=== PATIENT | male | born 1990 | race Caucasian/White ===

== ENCOUNTER 2025-03-23 20:22 | Emergency (ER) | payer SELFPAY ==
[2025-03-23 20:24] VITALS: BP 151/87; PULSE 96; RESP 17; TEMP 36.7; O2SAT 98; BMI 35.9
--- OUTSIDE RECORDS SUMMARY | 2025-03-23 20:27 | XMS_ITS | Encounter Summary ---
Author Organization [facility] Address [address] [place] [address] Care Team Providers Care Structural Steel Detailer Name Role Phone Unavailable Primary Care Provider Unavailabl e Encounter Details Date Type Department Care Team (Latest Contact Info) Description 07/03/2002 Outpatient Historical [facility] Medicine [place] [address] [phone] Ana Solitario MD NO ADDRESS ON FILE ACUTE PHARYNGITIS (Primary Dx); ACUTE SINUSITIS NOS Social History Tobacco Use Types Packs/Day Years Used Date Smoking Tobacco: Never Assessed Sex and Gender Information Value Date Recorded Sex Assigned at Not on file 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
--- OUTSIDE RECORDS SUMMARY | 2025-03-23 20:27 | XMS_ITS | Encounter Summary ---
Author Organization [facility] Address [address] [place] [address] Care Team Providers Care Alarm Signal Operator Name Role Phone Unavailable Primary Care Provider Unavailabl e Encounter Details Date Type Department Care Team (Latest Contact Info) Description 01/04/2000 Outpatient Historical [facility] Medicine [place] [address] [phone] Lachelle Reilly NO ADDRESS ON FILE Unspecified otitis media (Primary Dx); Infective otitis externa, unspecified Social History Tobacco Use Types Packs/Day Years Used Date Smoking Tobacco: Never Assessed Sex and Gender Information Value Date Recorded Sex Assigned at Not on file 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
--- OUTSIDE RECORDS SUMMARY | 2025-03-23 20:27 | XMS_ITS | Encounter Summary ---
Author Organization [facility] Address [address] [place] [address] Care Team Providers Care Wafer Fab Technician Name Role Phone Unavailable Primary Care Provider Unavailabl e Encounter Details Date Type Department Care Team (Latest Contact Info) Description 08/21/2001 Outpatient Historical [facility] Medicine [place] [address] [phone] Ana Solitario MD NO ADDRESS ON FILE STREP SORE THROAT (Primary Dx) Social History Tobacco Use Types Packs/Day Years Used Date Smoking Tobacco: Never Assessed Sex and Gender Information Value Date Recorded Sex Assigned at Not on file 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
--- OUTSIDE RECORDS SUMMARY | 2025-03-23 20:27 | XMS_ITS | Clinical Summary ---
Author Organization [facility] Address [address] [place] [address] Care Team Providers Care Social Service Liaison Name Role Phone Unavailable Primary Care Provider Unavailabl e Allergies Active Allergy Reactions Criticality Noted Date Comments White Petrolatum Swelling Low 06/16/2012 Medications fluticasone propionate (FLONASE) 50 mcg/spray [place], Suspension nasal inhalerIndicatio ns:Upper respiratory tract infection, unspecified type Administer 2 Sprays in each nostril daily. 16 Gram 2 0 Active promethazine-dex tromethorphan (PHENERGAN-DM) 6.25-15 mg/5 mL syrupIndications :Upper respiratory tract infection, unspecified type Take 5 mL by mouth nightly as needed for Cough. 120 mL 1 0 Active ondansetron (Zofran ODT) 4 mg Tablet, Rapid Dissolve Take 1 Tablet (4 mg) by mouth every 6 hours as needed for Nausea/Emesis. Dissolve tablet on top of tongue, then swallow with saliva. 16 Tablet 0 Active Active Problems No known active problems Immunizations Immunization Administration Dates Next Due (M-M-R II/PRIORIX)(12 MO UP) MEASLES, MUMPS AND RUBELLA VIRUS VACCINE, 0.5 ML IM/SUBCUT 11/01/1992 Dt Dtp Dtap Vaccine 05/23/2006, 3,03/03/1992,1991,1991 HIB, Unspecified Formulation 11/01/1992, 03/03/1992,01/06/1992,1991 Hepatitis B Vaccine 07/25/1995 IPV/OPV 11/01/1992,01/06/1992,1991 Social History Tobacco Use Types Packs/Day Years Used Date Smoking Tobacco: Never Smokeless Tobacco: Current Chew Tobacco Cessation:Ready to Q uit: No; Counseling Given: Yes Comments:one dip per day Alcohol Use Standard Drinks/Week Comments Yes 0 (1 standard drink = 0.6 oz pur e alcohol) ocassionally Sex and Gender Information Value Date Recorded Sex Assigned at Not on file 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 Gender Identity Not on file Sexual Orientation Not on file Occupation Industry Job Start Date Job End Date Not on file Not on file Not on file Not on file Last Filed Vital Signs Vital Sign Reading Time Taken Comments Blood Pressure 130/80 09/01/2019 11:23 AM CDT Pulse 72 09/01/2019 11:23 AM CDT Temperature 37.7 C (99.9 F) 09/01/2019 11:23 AM CDT Respiratory Rate 22 09/01/2019 11:2 3 AM CDT Oxygen Saturation 96% 09/01/2019 11: 23 AM CDT Inhaled Oxygen Concentration - - Weight 119.4 kg (263 lb 3.2 oz) 020 11:23 AM CDT Height 188 cm (6' 2 ) 09/01/2019 11:23 AM CDT Body Mass Index 33.79 09/01/2019 11:23 AM CDT Plan of Treatment Health Maintenance Due Date Last Done Comments HEPATITIS B VACCINES (2 of 3 - 3-dose series) 08/22/1995 07/25/1995 DTAP/TDAP/TD VACCINES (6 - Tdap) 05/23/2016 05/23/2006, 11/01/1992, 03/03/1992, Additional history exists HPV VACCINES (1 - 3-dose SCD M series) 2018 INFLUENZA VACCINE (#1) 2025 08/05/[address] [place] [address] [place] [address]
--- OUTSIDE RECORDS SUMMARY | 2025-03-23 20:27 | XMS_ITS | Encounter Summary ---
Author Organization [facility] Address [address] [place] [address] Care Team Providers Care Assembler Bicycle Name Role Phone Unavailable Primary Care Provider Unavailabl e Encounter Details Date Type Department Care Team (Latest Contact Info) Description 04/09/2001 Outpatient Historical [facility] Medicine [place] [address] [phone] Ana Solitario MD NO ADDRESS ON FILE DERMATITIS NOS (Primary Dx) Social History Tobacco Use Types Packs/Day Years Used Date Smoking Tobacco: Never Assessed Sex and Gender Information Value Date Recorded Sex Assigned at Not on file 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
--- OUTSIDE RECORDS SUMMARY | 2025-03-23 20:27 | XMS_ITS | Encounter Summary ---
Author Organization [facility] Address [address] [place] [address] Care Team Providers Care Wash Mill Operator Name Role Phone Unavailable Primary Care Provider Unavailabl e Encounter Details Date Type Department Care Team (Latest Contact Info) Description 02/05/[address] 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
--- OUTSIDE RECORDS SUMMARY | 2025-03-23 20:27 | XMS_ITS | Clinical Summary ---
Author Organization [facility] Address [address] [facility] Attn: Epic Prelude ADT ZHANNA LEON [address] Care Team Providers Care House Repairer Name Role Phone Krysten Rodriguez [facility] Primary Care Provider [phone] Allergies Active Allergy Reactions Criticality Noted Date Comments White Petrolatum Swelling Low 06/16/2012 Medications fluticasone propionate (FLONASE) 50 mcg/spray [place], Suspension nasal inhalerIndicatio ns:Upper respiratory tract infection, unspecified type Administer 2 Sprays in each nostril daily. 16 Gram 2 0 Active ondansetron (ZOFRAN ODT) 4 mg Tablet, Rapid Dissolve Take 1 Tablet (4 mg) by mouth every 6 hours as needed for Nausea/Emesis. Dissolve tablet on top of tongue, then swallow with saliva. 16 Tablet 0 0 Active promethazine-dex tromethorphan (PHENERGAN-DM) 6.25-15 mg/5 mL syrupIndications :Upper respiratory tract infection, unspecified type Take 5 mL by mouth nightly as needed for Cough. 120 mL 1 0 Active Immunizations Immunization Administration Dates Next Due (M-M-R II/PRIORIX)(12 MO UP) MEASLES, MUMPS AND RUBELLA VIRUS VACCINE, 0.5 ML IM/SUBCUT 11/01/1992 Dt Dtp Dtap Vaccine 05/23/2006, 3,03/03/1992,1991,1991 HIB, Unspecified Formulation 11/01/1992, 03/03/1992,01/06/1992,1991 Hepatitis B Vaccine 07/25/1995 IPV/OPV 11/01/1992,01/06/1992,1991 Social History Tobacco Use Types Packs/Day Years Used Date Smoking Tobacco: Never Smokeless Tobacco: Current Comments:Quit smoking: one d ip per day Alcohol Use Standard Drinks/Week Comments Yes 0 (1 standard drink = 0.6 oz pur e alcohol) Sex and Gender Information Value Date Recorded Sex Assigned at Not on file 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 Gender Identity Not on file Sexual Orientation Not on file Last Filed Vital Signs Vital Sign Reading Time Taken Comments Blood Pressure 130/80 09/01/2019 11:23 AM CDT Pulse 72 09/01/2019 11:23 AM CDT Temperature 37.7 C (99.9 F) 09/01/2019 11:23 AM CDT Respiratory Rate 22 09/01/2019 11:2 3 AM CDT Oxygen Saturation - - Inhaled Oxygen Concentration - - Weight 119.4 [...] series) 2018 INFLUENZA VACCINE (#1) 2025 08/05/2019 Care Teams House Repairer Relationship Specialty Start Date End Date Krysten Rodriguez FNP [address] [place] [phone] PCP - General Nurse Practitioner Family 01/04/21
--- NOTE | 2025-03-23 20:33 | ED_ITS ---
HPI - GI Bleed 2 General: Chief complaint: GI Bleed Stated complaint: Rectum Bleeding Time Seen by Provider: 03/23/25 20:25 History of Present Illness: 34yo M w/cc of bright red blood per rect um for several days. Patient initially had noted a mass on his anus and had some pain with bowel movements but the pain has now improved. Patient has had to change his underwear and has used 2 pads today for bleeding. Patient has not had a fever. Patient denies any chest pain, shortness of breath, palpitations or lightheadedness. He denies any abdominal pain, nausea or vomiting. He denies any urinary problems. Patient states that he has no previous history of rectal bleeding. He is otherwise healthy. 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 He denies previous h/o abd sgy. Related Data Allergies Allergy/AdvReac Type Severity Reaction Status Date / Time petrolatum,white (From Allergy ALGY-Anaphy Verified 03/23/25 20:28 Petroleum Jelly) laxis Physical Exam 2 Narrative: EXAM NARRATIVE: Vital signs were reviewed. Patient is alert and oriented. Patient is breathing comfortably, no increased WOB or accessory muscle use. SpO2 is above 95% on RA. No hypotension or tachycardia. Patient is moving all extremities, no deformity or gross injury. Rectal exam reveals a dime sized external mass with appearance consistent w/external hemorrhoid. It has stopped bleeding. There is dried blood noted. Course 2 Vital Signs: Vital signs: Vital Signs Temperature 98.1 F 03/23/25 20:24 Pulse Rate 92 03/23/25 21:07 Respiratory Rate 17 03/23/25 20:24 Blood Pressure 150/90 03/23/25 21:07 Pulse Oximetry 97 03/23/25 21:07 Oxygen Delivery Me thod Room Air 03/23/25 21:07 MDM - GI Bleed Medical Decision Making 31-year-old male presenting with a chief complaint of mass on his anus, pain with bowel movement and bright red blood per rectum for few days. Differential diagnosis includes but is limited to, external versus internal hemorrhoid, abscess/infection, STI, upper GI versus lower GI bleed, other. On exam he centrically stable and nontoxic-appearing. He has a benign abdominal exam and has no tenderness with palpation. Patient was screened with CBC and CMP. He has a normal white blood cell count and he is not anemic. He does not have any actionable electrolyte abnormalities and has normal kidney function, liver function. Physical exam is consistent with an external hemorrhoid. Patient is appropriate for outpatient management at this time. We did discuss that he may need a colonoscopy if rectal bleeding persists. He expressed understanding of my instructions. He will follow up outpatient. He was discharged in a stable condition. Lab Data 03/23/25 20:42 03/23/25 20:42 Laboratory Results WBC 5.83 10^3/uL (3.29-11.43) 03/23/25 20:42 RBC 4.80 10^6/uL (3.85-5.65) 03/23/25 20:42 Hgb 13.50 g/dL (11.27-16.99) 03/23/25 20:42 Hct 40.6 % (37-53) 03/23/25 20:42 MCV 84.6 fl (82-101) 03/23/25 20:42 MCH 28.1 pg (27-33) 03/23/25 20:42 MCHC 33.3 g/dL (30-55) 03/23/25 20:42 RDW 12.1 % (12.1-15.1) 03/23/25 20:42 Plt Count 178 10^3/cmm (157-399) 03/23/25 20:42 MPV 10.7 fL (7.4-10.4) H 03/23/25 20:42 Neut % (Auto) 43.0 % 03/23/25 20:42 Lymph % (Auto) 45.6 % 03/23/25 20:42 [place] % (Auto) 8.2 % 03/23/25 20:42 Eos % (Auto) 2.2 % 03/23/25 20:42 Baso % (Auto) 0.7 % 03/23/25 20:42 Neut # (Auto) 2.50 10^3/uL (1.8-7.7) 03/23/25 20:42 Lymph # (Auto) 2.7 10^3/uL (0.8-4.8) 03/23/25 20:42 [place] # (Auto) 0.5 10^3/uL (0.2-0.9) 03/23/25 20:42 Eos # (Auto) 0.1 10^3/uL (0.0-0.8) 03/23/25 20:42 Baso # (Auto) 0.0 10^3/uL (0.0-0.1) 03/23/25 20:42 Nucleated RBC % (auto) 0 % 03/23/25 20:42 Nucleated RBCs # 0.0 /100WBC 03/23/25 20:42 Sodium 142 mmol/L (136-145) 03/23/25 20:42 Potassium 3.7 mmol/L (3.5-5.1) 03/23/25 20:42 Chloride 106 mmol/L (98-107) 03/23/25 20:42 Carbon Dioxide 23 mmol/L (22-29) 03/23/25 20:42 Anion Gap 16.7 (5-19) 03/23/25 20:42 BUN 17 mg/dL (6-20) 03/23/25 20:42 Creatinine 1.0 mg/dL (0.7-1.2) 03/23/25 20:42 GFR Calculation 86.1 mL/min (90-130) L 03/23/25 20:42 Glucose 85 mg/dL (65-115) 03/23/25 20:42 Calculated Osmolality 295 mOsm/kg (285-295) 03/23/25 20:42 Calcium 8.7 mg/dL (8.5-10.5) 03/23/25 20:42 Total Bilirubin 0.3 mg/dL (0.15-1.2) 03/23/25 20:42 AST 16 U/L (0-40) 03/23/25 20:42 ALT 18 U/L (0-41) 03/23/25 20:42 Alkaline Phosphatase 76 U/L (40-130) 03/23/25 20:42 Total Protein 7.6 g/dL (6.6-8.7) 03/23/25 20:42 Albumin 4.5 g/dL (3.5-5.2) 03/23/25 20:42 Globulin 3.1 g/dL (1.3-4.6) 03/23/25 20:42 No radiology studies performed this visit Discharge Plan Discharge Patient Disposition: Home Clinical Impression: External hemorrhoid Condition: Stable Discharge Orders: Discharge ED (Routine); Ordered 03/23/25 Ordered By: Iva Kumar Patient Instructions: Hemorrhoids (DC), Sitz Bath (DC), Opioid Safety, Pain Management, Patient Portal & Salo Instructions Activity Restrictions/Additional Instructions: You may use [id number] hemorrhoid cream such as Preparation H. This will help with pain, bleeding and itching. It will also help lubricate the area prior to bowel movements. Consider increasing her water intake, fiber intake and use a daily stool softener. It is recommended that you perform a sitz bath 2-3 times per day as you are able to help with your symptoms. Follow-up with your primary care physician in 1 to 2 weeks. If bleeding per rectum persists, you may need a colonoscopy. Your doctor can help you schedule this on an outpatient basis. If you continue have issues with hemorrhoids, your doctor can also help you schedule consultation with a surgeon for definitive management. If your condition worsens or other concerns arise, please return to the emergency department for reassessment. Print Language: Monegasque Coding Level of Care Code ED Communication Lecturer for Tena Brooks
[2025-03-23 20:48] LABS: Hematocrit 40.6 % (37-53); Hemoglobin 13.50 g/dL (11.27-16.99); Mean Corpuscular HGB Conc 33.3 g/dL (30-55); Mean Corpuscular Hemoglobin 28.1 pg (27-33); Mean Corpuscular Volume 84.6 fl (82-101); Nucleated Red Blood Cells % 0 %; Platelet Count 178 10^3/cmm (157-399); Red Blood Count 4.80 10^6/uL (3.85-5.65); White Blood Count 5.83 10^3/uL (3.29-11.43)
[2025-03-23 21:07] VITALS: BP 150/90; PULSE 92; O2SAT 97
[2025-03-23 21:08] LABS: Alanine Aminotransferase 18 U/L (0-41); Albumin Level 4.5 g/dL (3.5-5.2); Alkaline Phosphatase 76 U/L (40-130); Anion Gap 16.7 (5-19); Aspartate Amino Transferase 16 U/L (0-40); Blood Urea Nitrogen 17 mg/dL (6-20); Calcium 8.7 mg/dL (8.5-10.5); Carbon Dioxide 23 mmol/L (22-29); Chloride 106 mmol/L (98-107); Creatinine Clr Calc Pharmacy 148.7930; Globulin 3.1 g/dL (1.3-4.6); Glucose 85 mg/dL (65-115); Osmolality Calculated 295 mOsm/kg (285-295); Potassium 3.7 mmol/L (3.5-5.1); Sodium 142 mmol/L (136-145); Total Protein 7.6 g/dL (6.6-8.7)
== END 2025-03-23 22:01 | disposition home or self-care (01) ==
PROVIDERS: Emergency Provider Emergency Medicine
DX: K64.4 Residual hemorrhoidal skin tags (principal)
CPT/HCPCS: 36415; 80053; 85025; 99283